=== PATIENT | male | born 1970 | race Caucasian/White ===

== ENCOUNTER 2017-07-02 10:15 | Day surgery (SDC) | payer OTHER ==
[2017-07-01 13:48] VITALS: BMI 36.9
[2017-07-02] MEDS ORDERED: IBUPROFEN 800 MG/8 ML IJ IVPB ONE (10:59)
[2017-07-02] MEDS ORDERED: DESFLURANE GAS 240 ML BOTTLE IH ONE (10:59)
[2017-07-02] MEDS ORDERED: BACITRACIN 15 GM TUBE TOPICAL OINTMENT TP ONE (11:21)
[2017-07-02] MEDS ORDERED: MIDAZOLAM HCL 2 MG/2 ML SINGLE DOSE VIAL ONE (11:38)
[2017-07-02] MEDS ORDERED: PROPOFOL 20 ML ONE (11:38)
[2017-07-02] MEDS ORDERED: ceFAZolin SODIUM 1 GM VIAL IVPB ONE (11:56)
[2017-07-02] MEDS ORDERED: ceFAZolin SODIUM 1 GM VIAL ONE (11:59)
[2017-07-02] MEDS ORDERED: BACITRACIN 15 GM TUBE TOPICAL OINTMENT ONE (12:17)
[2017-07-02] MEDS ORDERED: oxyCODONE HCL 5 MG TABLET PO PRN (12:27)
--- NOTE | 2017-07-02 12:29 | OP ---
Operative Note - Note: Operative Date: 07/02/17 Pre-Operative Diagnosis: phimosis Operation: circumcision/frenulotomy Findings: phimosis, tethered frenulum Surgeon: David Bunn Anesthesia: General Specimens Removed: foreskin Estimated Blood Loss (mls): 2 Operative Report Dictated: Yes
[2017-07-02] MEDS ORDERED: DEXTROSE 5%-0.45% SALINE 1,000 ML IV SCH (12:30)
[2017-07-02] MEDS ORDERED: ONDANSETRON 4 MG/2 ML VIAL IVPUSH PRN (12:34)
[2017-07-02] MEDS ORDERED: ACETAMINOPHEN 1000 MG/100 ML VIAL (NON FORMULARY) IVPB PRN (12:35)
[2017-07-02] MEDS ORDERED: LACTATED RINGERS SOLUTION 1,000 ML IV SCH (12:45)
--- NOTE | 2017-07-02 12:56 | OP ---
DATE OF OPERATION: PREOPERATIVE DIAGNOSIS: Phimosis. POSTOPERATIVE DIAGNOSIS: Phimosis. PROCEDURE: Circumcision. SURGEON: Dony Jones MD INDICATION: The patient is a 46-year-old male with phimotic foreskin and tethered fraying who elected to undergo circumcision and frenulotomy. Risks, benefits, and alternatives discussed, and the patient voluntarily made the decision to undergo the circumcision. DESCRIPTION OF PROCEDURE: After informed consent, the patient was taken to the OR and placed supine on operative table, quality assurance monitor body administered, general anesthesia established. The penis was prepped and draped in the standard sterile fashion. He was given 2 g of Ancef. At this point, the foreskin was incised at its normal anatomic position at the coronal sulcus. The foreskin was then retracted, and a 2nd incision was created approximately 2 cm proximal to the coronal sulcus. This sleeve of tissue was then excised with cautery, and the sleeve of tissue continued to be constricting ring of phimotic foreskin then removed, all bleeding sites were cauterized and then the proximal foreskin was sewn to the distal skirt of foreskin circumferentially using 3-0 chromic sutures until the tissue was completely anastomosed. A dry, sterile dressing was then placed with bacitracin, 4x4, and Coban. The patient was then awoken from anesthesia and transferred to the recovery room in stable condition. There were no complications. Estimated blood loss was minimal. DONY JONES M.D. [id number]
[2017-07-02 13:05] VITALS: TEMP 98
[2017-07-02 14:53] VITALS: BP 123/67; PULSE 79
--- NOTE | 2017-07-03 13:52 | PATH ---
Surgical Pathology Report Patient Name: SYD HART [facility]. Rec. #: [id number] /Age/Gender: 1970 (Age: 46) / M Account: [id number] Location: [facility] SURGICAL Taken: 07/02/2017 Received: 07/02/2017 Reported: 07/03/2017 Physicians: David Bunn M.D. Specimen(s) Received FORESKIN Clinical History Phimosis Final Diagnosis FORESKIN, CIRCUMCISION: FORESKIN WITH FOCAL MILD DERMAL CHRONIC INFLAMMATION. Electronically Signed Eliezer Calhoun M.D. Gross Description Received in formalin labeled "foreskin," is a 5.5 x 2.5 cm brown, unoriented, wrinkled portion of skin, consistent with foreskin. No discrete lesions are identified. Grinding Supervisor sections are submitted in one cassette. /07/02/2017 [facility]07/02/2017
== END 2017-07-02 14:58 | disposition home or self-care (01) ==
LOC: JASU-SURG 10:15
PROVIDERS: ATTEND Urology
PROC: 0VTTXZZ Resection of Prepuce, External Approach (ICD-10-PCS; principal; 2017-07-02 12:00)
DX: N47.1 Phimosis (principal)
CPT/HCPCS: 82962; 88304-TC; 94760; J0131